=== PATIENT | female | born 2000 | race American Indian/Alaskan Native ===

== ENCOUNTER 2020-07-30 01:59 | Emergency (ER) | payer MEDICAID ==
[2020-07-30 03:24] LABS: Mucus,Urine 1+ /HPF
[2020-07-30 03:25] LABS: Bilirubin,Urine NEG (Negative); Blood,Urine LG (Negative); Color,Urine Yellow (Yellow)
[2020-07-30 03:26] LABS: Basophils % (Auto) 0.2 % (0.0-1.8); Eosinophils # (Auto) 0.1 K/mm3 (0.0-0.4); Eosinophils % (Auto) 1.5 % (0.0-4.3); Hematocrit 33.9 % (30.3-42.9); Hemoglobin 11.4 gm/dl (10.1-14.3); Lymphocytes # (Auto) 1.9 K/mm3 (1.2-5.4); Lymphocytes % (Auto) 20.9 % (13.4-35.0); Mean Corpuscular HGB Conc 34 % (30-34); Mean Corpuscular Volume 83 fl (79-97); Monocytes % (Auto) 11.3 % (0.0-7.3); Platelet Count 289 K/mm3 (140-440); Red Cell Distribution Width 14.5 % (13.2-15.2)
--- NOTE | 2020-07-30 08:11 | Emergency Department Report ---
ED Female HPI - General Chief complaint: Vaginal Bleeding Stated complaint: VOMITING/BLEEDING/ Time Seen by Provider: 07/30/20 07:58 Source: patient Mode of arrival: Ambulatory Limitations: No Limitations - History of Present Illness Initial comments: 19 yr old obese female who reports no significant past medical history presents to ED with complaints of abnormal vag bleeding. Patient states that symptoms started about 3 days ago. She states that the bleeding was initially heavy but he has since become more for light.. She states that she has been changing about 2-3 pads per day since the bleeding started. She states that she did pass some small clots. She reports associated mild lower abdominal cramping. She states that her last normal menstrual cycle was in May 2020. She took a home test about 3 weeks ago, and both were positive. She is G1, P1 Ab0. She reports no other symptoms at this time. Complaint: vaginal bleeding -: Sudden (3 days ago ) - Related Data Allergies Allergy/AdvReac Type Severity Reaction Status Date / Time No Known Allergies Allergy Unverified 07/30/20 02:25 ED Review of Systems ROS: Stated complaint: VOMITING/BLEEDING/ Other details as noted in HPI Comment: All other systems reviewed and negative Constitutional: denies: chills, fever Eyes: denies: eye pain, eye discharge, vision change ENT: denies: ear pain, throat pain Respiratory: denies: cough, orthopnea, shortness of breath, SOB with exertion, S OB at rest, wheezing Cardiovascular: denies: chest pain, palpitations Endocrine: no symptoms reported Gastrointestinal: abdominal pain. denies: nausea, vomiting, diarrhea, constipation, hematemesis, melena, hematochezia Genitourinary: other (abnormal vag bleeding ). denies: urgency, dysuria, disch arge Skin: denies: rash, lesions Neurological: denies: headache, weakness, numbness, paresthesias, confusion, abnormal gait, vertigo Psychiatric: denies: anxiety, depression, auditory hallucinations, visual hallucinations, homicidal thoughts, suicidal thoughts Hematological/Lymphatic: denies: easy bleeding, easy bruising ED Past Medical Hx - Past Medical History Previous Medical History?: No - Surgical History Past Surgical History?: No - Social History Smoking Status: Never Smoker Substance Use Type: None ED Physical Exam - General Limitations: No Limitations General appearance: alert, in no apparent distress, obese - Head Head exam: Present: atraumatic, normocephalic, normal inspection - Eye Eye exam: Present: normal appearance, PERRL Pupils: Present: normal accommodation - ENT ENT exam: Present: normal exam, mucous membranes moist - Neck Neck exam: Present: normal inspection, full ROM - Respiratory Respiratory exam: Present: normal lung sounds bilaterally. Absent: respiratory distress - Cardiovascular Cardiovascular Exam: Present: regular rate, normal rhythm, normal heart sounds - GI/Abdominal GI/Abdominal exam: Present: soft. Absent: distended, tenderness, guarding, rebound - Neurological Exam Neurological exam: Present: alert, oriented X3, CN II-XII intact, normal gait - Psychiatric Psychiatric exam: Present: normal affect, normal mood - Skin Skin exam: Present: intact ED Course Vital Signs 07/30/20 07/30/20 02:08 08:28 Temperature 98.7 F Pulse Rate 107 H 100 H Respiratory 16 18 Rate Blood Pressure 151/90 Blood Pressure 146/96 [Left] O2 Sat by Pulse 98 98 Oximetry ED Medical Decision Making - Lab Data Result diagrams: 07/30/20 02:34 - Medical Decision Making 0811: Patient was waiting in ER 6 hrs prior to being seen by me. Her labs were reviewed. CBC within normal limits. UA appears to be more contaminated that true UTI and she has no UTI symptoms. Serum hCG is negative. Quantitative hCG less than 2. Based on these lab findings, does not appear that patient was . Even though she was having a miscarriage I would think that the test would still be positive. The bleeding that she is having could be related to her period. Currently patient is well-appearing, not toxic and does not appear to be in any acute distress. She has a soft nontender abdomen. Repeat vital signs are stable. Discussed lab results with patient. She was given a copy of her lab results. Recommend follow-up with [facility]. Patient was stable at time of discharge. - Differential Diagnosis Miscarriage; ectopic ; menstruation; severe anemia Critical care attestation.: If time is entered above; I have spent that time in minutes in the direct care of this critically ill patient, excluding procedure time. ED Disposition Clinical Impression: Abnormal vaginal bleeding Disposition: - TO HOME OR SELFCARE Is pt being admited?: No Does the pt Need Aspirin: No Condition: Stable Instructions: Abnormal Uterine Bleeding Additional Instructions: You can take Tylenol or ibuprofen from [id number] for any pain. Follow-up with your primary care doctor for further evaluation. Return to the ER if your symptoms changes or worsens in any way. Referrals: [facility] [Provider Group] - 3-5 Days Time of Disposition: 08:11
[2020-07-30 08:33] VITALS: BP 146/96
== END 2020-07-30 08:28 | disposition home or self-care (01) ==
LOC: ED 01:59
DX: O20.8 Other hemorrhage in early pregnancy (principal); Z3A.01 Less than 8 weeks gestation of pregnancy
CPT/HCPCS: 36415; 81001; 84702; 84703; 85025; 86900; 86901; 87086